=== PATIENT | female | born 1995 | race American Indian/Alaskan Native ===

== ENCOUNTER 2019-08-12 19:14 | Emergency (ER) | payer BC, MEDICAID ==
[2019-08-12 19:21] VITALS: BP 146/60; PULSE 105
[2019-08-12] MEDS ORDERED: Penicillin G Benzathine/Procaine 600-600 1.2 Millunits/2 ML Syringe IM ONE (20:43)
--- NOTE | 2019-08-12 20:49 | EDM.PDOC ---
ED HPI GENERAL MEDICAL PROBLEM - General Chief Complaint: ENT Problem Stated Complaint: STREP THROAT Time Seen by Provider: 08/12/19 20:45 Source of Information: Reports: Patient History Limitations: Reports: No Limitations - History of Present Illness INITIAL COMMENTS - FREE TEXT/NARRATIVE: Sx since Thu. not better, feels worse. Throat Pain Score (Numeric/FACES): 7 - Related Data Allergies Allergy/AdvReac Type Severity Reaction Status Date / Time shrimp Allergy Airway Uncoded 08/12/19 19:20 Tightness Home Meds: Home Meds . 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 Musculoskeletal History: Reports: Fracture Neurological History: Reports: None Psychiatric History: Reports: None Endocrine/Metabolic History: Reports: None Hematologic History: Reports: None Immunologic History: Reports: None Oncologic (Cancer) History: Reports: None Dermatologic History: Reports: None - Infectious Disease History Infectious Disease History: Reports: Chicken Pox - Past Surgical History Head Surgeries/Procedures: Reports: None Social & Family History - Tobacco Use Smoking Status *Q: Current Every Day Smoker Years of Tobacco use: 2 Packs/Tins Daily: 0.2 Second Hand Smoke Exposure: Yes - Caffeine Use Caffeine Use: Reports: Soda - Recreational Drug Use Recreational Drug Use: Yes Drug Use in Last 12 Months: Yes Recreational Drug Type: Reports: Marijuana/Hashish Recreational Drug Use Frequency: Not Used In Over 1 Month ED ROS ENT - Review of Systems Review Of Systems: Comprehensive ROS is negative, except as noted in HPI. ED EXAM, ENT - Physical Exam Exam: See Below Exam Limited By: No Limitations General Appearance: Alert, WD/WN, Mild Distress, Moderate Distress Ears: Hearing Grossly Normal Mouth/Throat: Pharyngeal Erythema, Tonsillar Erythema, Tonsillar Exudates, Tonsillar Swelling Head: Atraumatic Neck: Non-Tender, Full Range of Motion Respiratory/Chest: No Respiratory Distress Cardiovascular: Regular Rate, Rhythm GI/Abdominal: Soft, Non-Tender Psychiatric: Tearful Skin: Warm, Dry, Normal Color Lymphatic: No Adenopathy Course - Vital Signs Last Recorded V/S: Last Vital Signs Temp 37.3 C 08/12/19 19:17 Pulse 105 H 08/12/19 19:17 Resp 18 08/12/19 19:17 BP 146/60 H 08/12/19 19:17 Pulse Ox 100 08/12/19 19:17 - Orders/Labs/Meds Orders: Active Orders 24 hr Category Date Time Status CULTURE STREP A CONFIRMATION [RM] Stat Lab 08/12/19 19:20 Results STREP SCRN A RAPID W CULT CONF [RM] Stat Lab 08/12/19 19:20 Results Meds: Medications Discontinued Medications Generic Name Dose Route Start Last Admin Trade Name Freq PRN Reason Stop Dose Admin Penicillin G Procaine/Benzathine 1.2 millunits 08/12/19 20:43 Bicillin C-R 600/600 IM 08/12/19 20:44 ONETIME ONE - Re-Assessments/Exams Free Text/Narrative Re-Assessment/Exam: 08/12/19 20:47 results discussed with pt. Departure - Departure Time of Disposition: 20:47 Disposition: Home, Self-Care 01 Condition: Good Clinical Impression: Tonsillopharyngitis - Discharge Information Instructions: Tonsillitis, [id number] Additional Instructions: 1) no solid foods next 3 days 2) have popsicle, jello, smoothie 3) take tylenol or motrin for fever and body aches rx given; [id number]-[id number] miguel Sepsis Event Note - Evaluation Sepsis Screening Result: No Definite Risk - Focused Exam Vital Signs: Vital Signs Temp Pulse Resp BP Pulse Ox 08/12/19 19:17 37.3 C 105 H 18 146/60 H 100 Date Exam was Performed: 08/12/19 Time Exam was Performed: 20:45 - My Orders Last 24 Hours: My Active Orders 08/12/19 19:20 CULTURE STREP A CONFIRMATION [RM] Stat STREP SCRN A RAPID W CULT CONF [RM] Stat - Assessment/Plan Last 24 Hours: My Active Orders 08/12/19 19:20 CULTURE STREP A CONFIRMATION [RM] Stat STREP SCRN A RAPID W CULT CONF [RM] Stat
== END 2019-08-12 21:15 | disposition home or self-care (01) ==
LOC: DL.ED 19:14
DX: J02.9 Acute pharyngitis, unspecified (principal); F17.210 Nicotine dependence, cigarettes, uncomplicated; Z91.013 Allergy to seafood
CPT/HCPCS: 87081; 87430; 96372; 99283; J0558

== ENCOUNTER 2021-07-07 21:36 | Emergency (ER) | payer BC, MEDICAID ==
[2021-07-07] MEDS ORDERED: Orphenadrine 60 MG/2 ML Inj IM ONE (21:52)
[2021-07-07] MEDS ORDERED: Ketorolac 30 MG/ML SDV IM ONE (21:52)
--- NOTE | 2021-07-07 22:07 | EDM.PDOC ---
ED HPI GENERAL MEDICAL PROBLEM - General Chief Complaint: Back Pain or Injury Stated Complaint: AMBULANCE Time Seen by Provider: 07/07/21 21:50 Source of Information: Reports: Patient, EMS, RN, RN Notes Reviewed History Limitations: Reports: No Limitations - History of Present Illness INITIAL COMMENTS - FREE TEXT/NARRATIVE: Maria De Jesus is a 26 y/o female who presents to the ED via personal vehicle with complaints of low back pain. The patient states her back pain began around 1430 today after she finished shoveling snow. She characterizes the pain as a sharp cramp in her midline lower back, which does not radiate. The pain worsens with gross movement, including sitting up or standing. She denies falls or history of injury to the back or pelvis. She denies dysuria, hematuria, inability to void, incontinence of bowel/bladder, or saddle paraesthesia. She has taken one dose of Excedrin with no alleviation in symptoms. Lower Back Pain Score (Numeric/FACES): 5 - Related Data Allergies Allergy/AdvReac Type Severity Reaction Status Date / Time shrimp Allergy Airway Uncoded 07/07/21 21:37 Tightness Home Meds: Home Meds . 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 Musculoskeletal History: Reports: Fracture Neurological History: Reports: None Psychiatric History: Reports: None Endocrine/Metabolic History: Reports: None Hematologic History: Reports: None Immunologic History: Reports: None Oncologic (Cancer) History: Reports: None Dermatologic History: Reports: None - Infectious Disease History Infectious Disease History: Reports: Chicken Pox - Past Surgical History Head Surgeries/Procedures: Reports: None Social & Family History - Tobacco Use Tobacco Use Status *Q: Current Every Day Tobacco User Years of Tobacco use: 6 Packs/Tins Daily: 0.5 - Caffeine Use Caffeine Use: Reports: Energy Drinks, Soda - Recreational Drug Use Recreational Drug Use: No ED ROS GENERAL - Review of Systems Review Of Systems: Comprehensive ROS is negative, except as noted in HPI. ED EXAM,LOWER BACK PAIN/INJURY - Physical Exam Exam: See Below Exam Limited By: No Limitations General Appearance: Alert, No Apparent Distress, Obese Eye Exam: Bilateral Eye: EOMI, Normal Inspection, PERRL (3mm) Ears: Normal External Exam, Hearing Grossly Normal Nose: Normal Inspection, Normal Mucosa, No Blood Throat/Mouth: Normal Inspection, Normal Oropharynx, Normal Voice, No Airway Compromise Head: Atraumatic, Normocephalic Neck: Normal Inspection, Full Range of Motion. No: Lymphadenopathy (L), Lymphadenopathy (R) Respiratory/Chest: No Respiratory Distress, Lungs Clear, Normal Breath Sounds, No Accessory Muscle Use, Chest Non-Tender Cardiovascular: Normal Peripheral Pulses, Regular Rate, Rhythm, No Gallop, No Murmur, No Rub GI/Abdominal: Normal Bowel Sounds, Soft, Non-Tender, No Distention, No Abnormal Bruit, Pelvis Stable. No: Guarding, Rigid, Rebound (Female) Exam: Deferred Rectal (Female) Exam: Deferred Back Exam: Decreased Range of Motion, Muscle Spasm. No: Paraspinal Tenderness, Vertebral Tenderness Extremities: Normal Inspection, Normal Range of Motion, Non-Tender, No Pedal Edema, Normal Capillary Refill Neurological: Alert, Normal Dorsiflexion, CN II-XII Intact, Normal Plantar Flexion, Normal Reflexes, No Motor/Sensory Deficits, Oriented x 3, Abnormal Gait. No: Saddle Anesthesia Psychiatric: Normal Affect, Normal Mood Skin Exam: Warm, Dry, Intact, Normal Color, No Rash. No: Cyanosis, Jaundice, Mottled, Pallor Course - Vital Signs Last Recorded V/S: Last Vital Signs Temp 97.2 F 07/07/21 22:07 Pulse 60 07/07/21 22:07 Resp 14 07/07/21 22:07 BP 133/76 07/07/21 22:07 Pulse Ox 95 07/07/21 22:07 - Orders/Labs/Meds Labs: Laboratory Tests 07/07/21 07/07/21 Range/Units 23:32 23:32 Urine Color Yellow (YELLOW) Urine Appearance Clear (CLEAR) Urine pH 6.5 (5.0-9.0) Ur Specific Lindstrom 1.025 (1.005-1.030) Urine Protein Negative (NEGATIVE) Urine Glucose (UA) Negative (NEGATIVE) Urine Ketones 15 H (NEGATIVE) Urine Occult Blood Negative (NEGATIVE) Urine Nitrite Negative (NEGATIVE) Urine Bilirubin Negative (NEGATIVE) Urine Urobilinogen 0.2 (0.2-1.0) mg/dL Ur Leukocyte Esterase Negative (NEGATIVE) Urine HCG, Qual Negative Meds: Medications Discontinued Medications Generic Name Dose Route Start Last Admin Trade Name Carlo PRN Reason Stop Dose Admin Ketorolac Tromethamine 30 mg 07/07/21 21:52 07/07/21 22:03 Ketorolac 30 Mg/Ml Sdv IM 07/07/21 21:53 30 mg ONETIME ONE Administration Orphenadrine Citrate 60 mg 07/07/21 21:52 07/07/21 22:06 Orphenadrine 60 Mg/2 Ml Inj IM 07/07/21 21:53 60 mg ONETIME ONE Administration - Radiology Interpretation Free Text/Narrative:: [facility] Final Radiology Report Call: [phone] assistance Online chat: [email or web address] Name: MARIA DE JESUS LAMB Age: 26Years F Date: 07/07/2021 SSN: -- : [id number] Study: CR LUMBAR SPINE 2 OR 3V Requesting Physician: Meri Varela Images: 2 Addl Studies: Provided Clinical History: Acute midline low back pain Contrast: Contrast Medium: Contrast Amount: Contrast Method: CONFIDENTIALITY STATEMENT This report is intended only for use by the referring physician, and only in accordance with law. If you received this in error, call [phone]. Page 1 of 1 PROCEDURE INFORMATION: Exam: XR Lumbosacral Spine Exam date and time: 07/07/2021 11:45 PM Age: 26 years old Clinical indication: Other: Acuute midline low back pain; Additional info: Acute midline low back pain TECHNIQUE: Imaging protocol: XR of the lumbosacral spine. Views: 2 or 3 views. COMPARISON: No relevant prior studies available. FINDINGS: Bones/joints: Near anatomic alignment. There are no significant degenerative changes present. The pedicles are intact. No visible bone destruction. No fracture or compression fracture seen. Soft tissues: There is no soft tissue abnormality seen. IMPRESSION: No acute findings. Thank you for allowing us to participate in the care of your patient. Dictated and Authenticated by: Juan Glover MD 07/08/2021 12:43 AM Central Time ([place] & [place]) - Re-Assessments/Exams Free Text/Narrative Re-Assessment/Exam: 07/07/21 Orphenadrine 60mg IM and Ketorolac 30mg IM administered. Lumbar spine XR obt ained. Findings of examination, lab work, and imaging reviewed with patient. Will treat muscle spasm with orphenadrine. Supportive cares discussed. Patient instructed to follow up with primary care provider in 5-7 days regarding todays visit. Red flag signs and symptoms which would warrant immediate reevaluation reviewed. Patient verbalized understanding and agreement with the plan of care. Departure - Departure Time of Disposition: 23:58 Disposition: Home, Self-Care 01 Condition: Good Clinical Impression: Back muscle spasm Low back pain Qualifiers: Chronicity: acute Back pain laterality: midline Sciatica presence: without sciatica Qualified Code(s): M54.50 - Low back pain, unspecified - Discharge Information *PRESCRIPTION DRUG MONITORING PROGRAM REVIEWED*: Not Applicable *COPY OF PRESCRIPTION DRUG MONITORING REPORT IN PATIENT XAVI: Not Applicable Instructions: Muscle Cramps and Spasms, Acute Back Pain, Adult Forms: ED Department Discharge Additional Instructions: Rx: orphenadrine 100mg (#6) 1.) You may alternate cold and warm compresses to the affected area as pain and spasm persists. 2.) You may apply BioFreeze, or similar ointment/cream, to the affected area as pain and spasm persists. 3.) You may take ibuprofen (Advil/Motrin) 400mg every six hours, as pain persists. You may also take acetaminophen (Tylenol) 650-1000mg every six hours, as pain persists. You may stagger these medications so you are taking a dose of either every three hours. 4.) Follow up with your primary care provider in 2-3 days regarding today's visit. Sepsis Event Note (ED) - Evaluation Sepsis Screening Result: No Definite Risk - Focused Exam Vital Signs: Vital Signs Temp Pulse Resp BP Pulse Ox 07/07/21 22:07 97.2 F 60 14 133/76 95 07/07/21 21:37 98.2 F 66 16 128/66 96
--- NOTE | 2021-07-08 00:43 | CR ---
PROCEDURE INFORMATION: Exam: XR Lumbosacral Spine Exam date and time: 07/07/2021 11:45 PM Age: 26 years old Clinical indication: Other: Acuute midline low back pain; Additional info: Acute midline low back pain TECHNIQUE: Imaging protocol: XR of the lumbosacral spine. Views: 2 or 3 views. COMPARISON: No relevant prior studies available. FINDINGS: Bones/joints: Near anatomic alignment. There are no significant degenerative changes present. The pedicles are intact. No visible bone destruction. No fracture or compression fracture seen. Soft tissues: There is no soft tissue abnormality seen. IMPRESSION: No acute findings.
[2021-07-08 00:52] VITALS: BP 128/69; PULSE 63
== END 2021-07-08 00:51 | disposition home or self-care (01) ==
LOC: DL.ED 21:36
DX: M62.830 Muscle spasm of back (principal); Z91.013 Allergy to seafood
CPT/HCPCS: 72100; 81003; 81025; 96372; 99284; J1885; J2360

== ENCOUNTER 2022-02-08 02:41 | Emergency (ER) | payer MEDICAID ==
[~2022-02-08 02:41] MED LIST: Sodium Chloride 0.9% 1,000 ML IV ONE
[2022-02-08 03:40] LABS: ACETAMINOPHEN 0 ug/mL (10-30 (Therapeutic)); ANION GAP 18.7 mEq/L (7-13); CHLORIDE,CL 106 mmol/L (98-107); ESTIMATED GFR 103 mL/min (>=60); SODIUM,NA 144 mmol/L (136-145)
[2022-02-08] MEDS ORDERED: Potassium Chloride 20 MEQ in Premix Bag 1 BAG IV ONE (03:53)
[2022-02-08] MEDS ORDERED: Sodium Chloride 0.9% 1,000 ML IV ONE (03:53)
[2022-02-08 06:14] VITALS: BP 120/83; PULSE 115
== END 2022-02-08 07:25 | disposition home or self-care (01) ==
LOC: DL.ED 02:41
DX: T54.92XA Toxic effect of unspecified corrosive substance, intentional self-harm, initial encounter (principal); F10.120 Alcohol abuse with intoxication, uncomplicated; Y90.8 Blood alcohol level of 240 mg/100 ml or more; Z91.013 Allergy to seafood
CPT/HCPCS: 36415; 80053; 80143; 80179; 80307; 82150; 83690; 84703; 85025; 96361; 96365; 96366; 99284; J3480; J7030; 21480; 99283

== ENCOUNTER 2022-02-23 21:59 | Emergency (ER) | payer MEDICAID ==
[2022-02-23 22:08] VITALS: BP 117/54; PULSE 77
== END 2022-02-23 22:21 | disposition home or self-care (01) ==
LOC: DL.ED 21:59
DX: T16.1XXA Foreign body in right ear, initial encounter (principal); Z91.013 Allergy to seafood
CPT/HCPCS: 99282

== ENCOUNTER 2022-04-09 22:13 | Emergency (ER) | payer MEDICAID ==
[2022-04-09 23:33] VITALS: BP 138/88; PULSE 84
[2022-04-09 23:40] LABS: CORONAVIRUS COVID-19 NAA NEGATIVE (NEGATIVE)
[2022-04-09] MEDS ORDERED: Clindamycin HCl 150 MG Cap PO ONE (23:49)
== END 2022-04-09 23:58 | disposition home or self-care (01) ==
LOC: DL.ED 22:13
DX: K04.7 Periapical abscess without sinus (principal); Z91.013 Allergy to seafood; Z20.822 Contact with and (suspected) exposure to COVID-19
CPT/HCPCS: 0240U; 99283; A9270-GY

== ENCOUNTER 2022-09-14 22:16 | Emergency (ER) | payer MEDICAID ==
[2022-09-14 22:46] VITALS: BP 130/94; PULSE 118
[2022-09-14 23:22] LABS: CORONAVIRUS COVID-19 NAA POSITIVE (NEGATIVE)
[2022-09-14] MEDS ORDERED: Azithromycin 250 MG Tab PO ONE (23:36)
== END 2022-09-14 23:50 | disposition home or self-care (01) ==
LOC: DL.ED 22:16
DX: U07.1 COVID-19 (principal); J02.9 Acute pharyngitis, unspecified; F17.210 Nicotine dependence, cigarettes, uncomplicated; Z91.018 Allergy to other foods
CPT/HCPCS: 0240U; 87081; 87430; 99283; A9270-GY

== ENCOUNTER 2023-05-26 08:25 | Emergency (ER) | payer MEDICAID ==
[2023-05-26 08:42] VITALS: BP 129/82; PULSE 105
[2023-05-26] MEDS ORDERED: cefTRIAXone 1 GM Vial IM ONE (08:52)
== END 2023-05-26 09:06 | disposition home or self-care (01) ==
LOC: DL.ED 08:25
DX: J02.0 Streptococcal pharyngitis (principal)
CPT/HCPCS: 87430; 96372; 99283; J0696

== ENCOUNTER 2023-11-07 20:31 | Emergency (ER) | payer MEDICAID, OTHER ==
[2023-11-07 21:08] VITALS: BP 128/76; PULSE 84
[2023-11-07 21:38] LABS: BASOPHILS PERCENT AUTO 0.2 % (0.0-1.0); HEMATOCRIT 36.3 % (37.0-47.0); HEMOGLOBIN 12.6 g/dL (12.0-16.0); LYMPHOCYTES PERCENT AUTO 19.7 % (20.5-50.1); MEAN CORPUSCULAR HEMOGLOBIN 30.9 pg (27.0-34.0); MEAN CORPUSCULAR HGB CONC 34.7 g/dL (33.0-35.0); NEUTROPHILS PERCENT AUTO 73.1 % (42.2-75.2); PLATELET COUNT,PLT 230 10^3/uL (150-450); RED BLOOD CELL COUNT 4.08 10^6/uL (4.2-5.4); WHITE BLOOD CELL COUNT,WBC 15.4 10^3/uL (5.0-10.0)
[2023-11-07 21:57] LABS: CORONAVIRUS COVID-19 NAA NEGATIVE (NEGATIVE); INFLUENZA A NAA NEGATIVE (NEGATIVE); INFLUENZA B NAA NEGATIVE (NEGATIVE); RESPIRATORY SYNCYTIAL VIR NAA NEGATIVE (NEGATIVE)
[2023-11-07 22:01] LABS: A/G RATIO 0.8; ALBUMIN 3.5 g/dL (3.4-5.0); ANION GAP 15.8 mEq/L (7-13); BUN/CREATININE RATIO 13.6 (No establ ref range); CALCIUM 8.9 mg/dL (8.5-10.1); CREATININE 0.59 mg/dL (0.55-1.02); EST CRCL DRUG DOSING (CG) 122.59 mL/min; POTASSIUM,K 3.8 mmol/L (3.5-5.1)
== END 2023-11-07 22:30 | disposition home or self-care (01) ==
LOC: DL.ED 20:31
DX: O99.891 Other specified diseases and conditions complicating pregnancy (principal); R07.89 Other chest pain; M79.602 Pain in left arm; O99.331 Smoking (tobacco) complicating pregnancy, first trimester; F17.210 Nicotine dependence, cigarettes, uncomplicated; Z3A.10 10 weeks gestation of pregnancy; Z91.013 Allergy to seafood
CPT/HCPCS: 0241U; 36415; 80053; 84484; 85025; 93005; 93010; 99284; 99285

== ENCOUNTER 2023-11-08 08:28 | Emergency (ER) | payer OTHER ==
[2023-11-08] MEDS: Take Home: Amoxicillin 500 MG, 6 Cap Pack PO ONE (09:06)
[2023-11-08 09:13] VITALS: BP 110/70; PULSE 94
== END 2023-11-08 09:09 | disposition home or self-care (01) ==
LOC: DL.ED 08:28
DX: J03.90 Acute tonsillitis, unspecified (principal); Z91.013 Allergy to seafood
CPT/HCPCS: 99283; A9270

== ENCOUNTER 2024-04-06 21:51 | Emergency (ER) | payer MEDICAID, OTHER ==
[2024-04-06] MEDS: Acetaminophen 500 MG Tab PO ONE (22:13)
[2024-04-06 22:46] VITALS: BP 119/62
[2024-04-06 22:59] VITALS: PULSE 92
== END 2024-04-06 22:59 | disposition home or self-care (01) ==
LOC: DL.ED 21:51
DX: U07.1 COVID-19 (principal); E03.9 Hypothyroidism, unspecified; F17.210 Nicotine dependence, cigarettes, uncomplicated; Z91.013 Allergy to seafood; Z79.82 Long term (current) use of aspirin; Z86.16 Personal history of COVID-19
CPT/HCPCS: 87635; 87804; 99284; A9270; 99283; U0002

== ENCOUNTER 2024-05-30 08:19 | Inpatient (IN) | payer MEDICAID ==
[2024-05-30] MEDS ORDERED: Methylergonovine 0.2 MG/1 ML Amp IM PRN (10:36)
[2024-05-30] MEDS ORDERED: Sodium Chloride 0.9% 10 ML Syringe FLUSH PRN (10:36)
[2024-05-30] MEDS ORDERED: Tranexamic Acid 1,000 MG in Sodium Chloride 0.9% 100 ML IV PRN (10:36)
[2024-05-30] MEDS ORDERED: Carboprost Tromethamine 250 MCG/1 ML Amp IM PRN (10:36)
[2024-05-30 10:39] LABS: BASOPHILS PERCENT AUTO 0.3 % (0.0-1.0); EOSINOPHILS PERCENT AUTO 0.9 % (1.0-3.0); MEAN CORPUSCULAR HEMOGLOBIN 28.3 pg (27.0-34.0); MEAN CORPUSCULAR HGB CONC 32.4 g/dL (33.0-35.0); MEAN CORPUSCULAR VOLUME 87.3 fL (80-100); MONOCYTES PERCENT AUTO 4.6 % (2-8); NEUTROPHILS PERCENT AUTO 64.2 % (42.2-75.2); PLATELET COUNT,PLT 170 10^3/uL (150-450); RED BLOOD CELL COUNT 4.24 10^6/uL (4.2-5.4); WHITE BLOOD CELL COUNT,WBC 10.5 10^3/uL (5.0-10.0)
[2024-05-30] MEDS ORDERED: Oxytocin/Normal Saline 30 UNIT/500 ML BAG IV SCH (10:45)
[2024-05-30] MEDS: Misoprostol 50 MCG (1/2 of 100 MCG) Tab VAG SCH (11:17)
[2024-05-30] MEDS: Misoprostol 25 MCG (1/4 of 100 MCG) Tab VAG PRN (14:28)
[2024-05-30] MEDS: Oxytocin/Normal Saline 30 UNIT/500 ML BAG IV SCH (19:38)
[2024-05-30] MEDS: Lactated Ringers 1,000 ML IV SCH (19:38)
[2024-05-30] MEDS: fentaNYL 100 MCG/2 ML SDV IVPUSH PRN (20:34)
[2024-05-30] MEDS: Ondansetron 4 MG/2 ML SDV IVPUSH PRN (21:55)
[2024-05-30] MEDS: Lactated Ringers 1,000 ML IV ONE (22:07)
[2024-05-30] MEDS ORDERED: Bupivacaine 0.25% 10 ML SDV ONE (22:42)
[2024-05-30] MEDS ORDERED: fentaNYL 100 MCG/2 ML SDV ONE (22:42)
[2024-05-30] MEDS ORDERED: Phenylephrine HCl In 0.9% NaCl 1 MG/10 ML Syringe IVPUSH PRN (23:04)
[2024-05-30] MEDS ORDERED: ePHEDrine 50 MG/ML SDV IVPUSH PRN (23:04)
[2024-05-30] MEDS ORDERED: Ropivacaine 200 MG in Premix Bag 1 BAG EPIDUR SCH (23:15)
[2024-05-31] MEDS: Misoprostol 100 MCG Tab RECTAL PRN (00:22)
[2024-05-31] MEDS ORDERED: Simethicone 80 MG Tab.Chew PO PRN (00:25)
[2024-05-31] MEDS ORDERED: Sodium Chloride 0.9% 10 ML Syringe FLUSH PRN (00:25)
[2024-05-31] MEDS ORDERED: Oxytocin 10 Units/1 ML SDV IM PRN (00:25)
[2024-05-31] MEDS: Benzocaine/Menthol 20%-0.5% Spray 78 GM Cannister TOP PRN (02:50)
[2024-05-31] MEDS: Witch Hazel Medicated Pads 100/Jar TOP PRN (02:50)
[2024-05-31] MEDS: Ibuprofen 800 MG Tab PO SCH ×2 (02:50→09:37)
[2024-05-31] MEDS: Lidocaine 1% 30 ML SDV INJECT ONE (05:32)
[2024-05-31 06:07] LABS: HEMATOCRIT 35.5 % (37.0-47.0); HEMOGLOBIN 11.3 g/dL (12.0-16.0); MEAN CORPUSCULAR HGB CONC 31.8 g/dL (33.0-35.0); MEAN CORPUSCULAR VOLUME 87.9 fL (80-100); RED BLOOD CELL COUNT 4.04 10^6/uL (4.2-5.4); WHITE BLOOD CELL COUNT,WBC 14.6 10^3/uL (5.0-10.0)
[2024-05-31] MEDS: Prenatal Multivitamin with Calcium/Folic Acid/Iron Tab PO SCH (09:36)
[2024-05-31] MEDS: Acetaminophen 325 MG Tab PO PRN (12:34)
[2024-06-01] MEDS: Docusate Sodium 100 MG Cap PO PRN (08:13)
[2024-06-01 10:59] VITALS: BP 121/72; PULSE 56
[2024-06-01] MEDS ORDERED: FLU (Flulaval Triv) 24-25(6MOS UP)/PF 45 MCG/0.5 ML Syringe IM ONE (13:45)
[2024-06-01] MEDS: FLU (Fluarix Triv) TS24-25(6MOS UP)/PF 45 MCG/0.5 ML Syringe IM ONE (13:50)
== END 2024-06-01 13:45 | disposition home or self-care (01) | DRG 807 ==
LOC: DL.OBCHECK 08:19 → DL.OB 08:29 → OBSVTOIN 05-31 00:10
PROVIDERS: ADMIT Family Medicine; ATTEND Family Medicine
PROC: 10E0XZZ Delivery of Products of Conception, External Approach (ICD-10-PCS; principal; 2024-05-31)
PROC: 10907ZC Drainage of Amniotic Fluid, Therapeutic from Products of Conception, Via Natural or Artificial Opening (ICD-10-PCS; 2024-05-31)
PROC: 3E0P7VZ Introduction of Hormone into Female Reproductive, Via Natural or Artificial Opening (ICD-10-PCS; 2024-05-31)
PROC: 10H07YZ Insertion of Other Device into Products of Conception, Via Natural or Artificial Opening (ICD-10-PCS; 2024-05-31)
PROC: 0HQ9XZZ Repair Perineum Skin, External Approach (ICD-10-PCS; 2024-05-31)
PROC: 3E0R3BZ Introduction of Anesthetic Agent into Spinal Canal, Percutaneous Approach (ICD-10-PCS; 2024-05-31)
PROC: 00HU33Z Insertion of Infusion Device into Spinal Canal, Percutaneous Approach (ICD-10-PCS; 2024-05-31)
DX: O24.420 Gestational diabetes mellitus in childbirth, diet controlled (principal); Z37.0 Single live birth; O99.284 Endocrine, nutritional and metabolic diseases complicating childbirth; E03.9 Hypothyroidism, unspecified; O77.0 Labor and delivery complicated by meconium in amniotic fluid; O69.81X0 Labor and delivery complicated by cord around neck, without compression, not applicable or unspecified; O62.2 Other uterine inertia; O70.0 First degree perineal laceration during delivery; Z3A.39 39 weeks gestation of pregnancy
CPT/HCPCS: 36415; 59409; 82947; 85025; 85027; 86592; 86593; 86780; 86850; 86900; 86901; 90656; A9270-GY; G0008; J2405; J2590; J3010; J7120

== ENCOUNTER 2024-08-14 21:28 | Emergency (ER) | payer MEDICAID ==
[2024-08-14 21:57] VITALS: BP 133/72; PULSE 90
[2024-08-14] MEDS: Ketorolac 30 MG/ML SDV IM ONE (23:13)
== END 2024-08-14 23:20 | disposition home or self-care (01) ==
LOC: DL.ED 21:28
DX: S93.491A Sprain of other ligament of right ankle, initial encounter (principal); E03.9 Hypothyroidism, unspecified; F17.210 Nicotine dependence, cigarettes, uncomplicated; Z79.82 Long term (current) use of aspirin; Z79.899 Other long term (current) drug therapy; Z91.013 Allergy to seafood; X50.1XXA Overexertion from prolonged static or awkward postures, initial encounter; Y93.01 Activity, walking, marching and hiking
CPT/HCPCS: 73610-RT; 96372; 99283; J1885

== ENCOUNTER 2025-03-05 16:51 | Emergency (ER) | payer MEDICAID ==
[2025-03-05 17:07] VITALS: BP 135/87; PULSE 76
== END 2025-03-05 17:14 | disposition home or self-care (01) ==
LOC: DL.ED 16:51
DX: M54.41 Lumbago with sciatica, right side (principal); E03.9 Hypothyroidism, unspecified; F17.200 Nicotine dependence, unspecified, uncomplicated; Z91.013 Allergy to seafood; Z79.82 Long term (current) use of aspirin; Z79.890 Hormone replacement therapy; Z79.899 Other long term (current) drug therapy; Z86.16 Personal history of COVID-19
CPT/HCPCS: 99283

== ENCOUNTER 2025-06-27 12:36 | Emergency (ER) | payer MEDICAID ==
[2025-06-27 13:48] VITALS: BP 123/96; PULSE 78
== END 2025-06-27 13:47 | disposition home or self-care (01) ==
LOC: DL.ED 12:36
DX: J02.0 Streptococcal pharyngitis (principal); E03.9 Hypothyroidism, unspecified; F17.200 Nicotine dependence, unspecified, uncomplicated; Z91.013 Allergy to seafood; Z79.82 Long term (current) use of aspirin; Z79.890 Hormone replacement therapy; Z79.899 Other long term (current) drug therapy; Z86.16 Personal history of COVID-19
CPT/HCPCS: 87430; 99283